=== PATIENT | male | born 1985 | race Hispanic/Latino ===

== ENCOUNTER 2018-10-13 18:25 | Inpatient (IN) | payer MEDICAID ==
[2018-10-13 19:30] LABS: HEMOGLOBIN 15.7 g/dL (12.0-18.0); MEAN CELL VOLUME 89.3 fL (80.0-94.0); MEAN CORPUSCULAR HEMOGLOBIN 29.8 pg (27.0-31.0); MEAN CORPUSCULAR HGB CONC 33.3 g/dL (33.0-37.0); MEAN PLATELET VOLUME 8.9 fL (7.2-11.7); RBC 5.28 Mil/uL (4.40-5.90)
--- NOTE | 2018-10-13 19:37 | C.PDOC ---
History Of Present Illness 32 y/o male with a PMHx of anxiety and depression presents to the ED requesting detox from heroin. Last use was last night. Patient reports he began using heroin (sniffing, no IVDA) 2 months ago and has been trying to self detox at [facility] without success. States he has been on Lexapro, Trazodone, and Xanax but ran out of his meds a few weeks ago, causing him to feel more depressed and rely more on the heroin use. Patient notes he usually develops nausea, diarrhea, and unbearable abdominal pain when detoxing. Currently he complains of chills but no pain or tremors at present. He denies any suicidal or homicidal ideation. No other medical complaints. Time Seen by Provider: 10/13/18 19:04 Chief Complaint (Nursing): Substance Abuse History Per: Patient History/Exam Limitations: no limitations Onset/Duration Of Symptoms: Days Current Symptoms Are (Timing): Still Present Suicide/Self Injury Attempted (Context): None Modifying Factor(s): Narcotics Associated Symptoms: Anxiety, Depression. denies: Suicidal Plan Involuntary Hold By: None Past Medical History Reviewed: Historical Data, Nursing Documentation, Vital Signs Vital Signs: Last Vital Signs Temp 97.8 F 10/13/18 18:27 Pulse 84 10/13/18 18:27 Resp 20 10/13/18 18:27 BP 115/81 10/13/18 18:27 Pulse Ox 99 10/13/18 18:27 - Medical History PMH: Anxiety, Asthma, Depression Denies: Diabetes, Hepatitis, HIV, HTN, Seizures, Sexually Transmitted Disease Surgical History: No Surg Hx Family History: States: Unknown Family Hx - Social History Hx Tobacco Use: No Hx Alcohol Use: No Hx Substance Use: Yes (Heroin, Marijuana) - Immunization History Hx Tetanus Toxoid Vaccination: Yes Hx Influenza Vaccination: No Hx Pneumococcal Vaccination: No Review Of Systems Except As Marked, All Systems Reviewed And Found Negative. Constitutional: Positive for: Chills. Negative for: Sweats Cardiovascular: Negative for: Chest Pain, Palpitations Respiratory: Negative for: Shortness of Breath Gastrointestinal: Negative for: Nausea, Vomiting, Abdominal Pain, Diarrhea Musculoskeletal: Negative for: Other (tremors) Neurological: Negative for: Weakness, Numbness Physical Exam - Physical Exam Appears: Well, Non-toxic, No Acute Distress Skin: Warm, Dry Head: Atraumatic, Normacephalic Eye(s): bilateral: Normal Inspection, PERRL, EOMI Neck: Normal ROM Chest: Symmetrical Cardiovascular: Rhythm Regular, No Murmur Respiratory: Normal Breath Sounds, No Accessory Muscle Use Gastrointestinal/Abdominal: Soft, No Tenderness, No Distention Extremity: Bilateral: Atraumatic, No Pedal Edema, Normal ROM Pulses: Left Dorsalis Pedis: Normal, Right Dorsalis Pedis: Normal Neurological/Psych: Oriented x3, Normal Speech, Other (Calm, cooperative) ED Course And Treatment - Laboratory Results Result Diagrams: 10/13/18 19:26 10/13/18 19:26 O2 Sat by Pulse Oximetry: 99 (RA) Pulse Ox Interpretation: Normal Medical Decision Making Medical Decision Making: Impression: Detox, heroin Plan: Labs ordered for medical clearance. forest nursery worker to speak to patient and evaluate for detox. 19:50 Labs reviewed, Utox (+) for opiates, cannabinoids, and cocaine. Patient is medically cleared for detox admission. 20:55 Discussed with cinder pit worker, patient accepted for detox under Dr. Rudolph's service. Disposition Counseled Patient/Family Regarding: Studies Performed, Diagnosis - Disposition Disposition: HOSPITALIZED Disposition Time: 20:56 Condition: STABLE - Clinical Impression Clinical Impression: Polysubstance abuse, Hyperglycemia - Scribe Statement The provider has reviewed the documentation as recorded by the Kristyn Wallace Provider Attestation: All medical record entries made by the Vivianibmarilin were at my direction and personally dictated by me. I have reviewed the chart and agree that the record accurately reflects my personal performance of the history, physical exam, medical decision making, and the department course for this patient. I have also personally directed, reviewed, and agree with the discharge instructions and disposition.
[2018-10-13 19:47] LABS: ALB/GLOB RATIO 1.5 (1.0-2.1); ALBUMIN 4.4 g/dL (3.5-5.0); ALT/SGPT 26 U/L (21-72); AST/SGOT 21 U/L (17-59); BARBITURATES, UR NEGATIVE (NEGATIVE); BENZODIAZEPINES, UR NEGATIVE (NEGATIVE); BLOOD UREA NITROGEN 14 mg/dL (9-20); GFR NON-AFRICAN AMERICAN > 60; OPIATES, UR POSITIVE (NEGATIVE); PHENCYCLIDINE, UR NEGATIVE (NEGATIVE)
--- NOTE | 2018-10-13 21:25 | PCM.BM ---
<Norma Fish - Last Filed: 10/13/18 21:23> Treatment Plan Problems - Problems identified on initial assessmt Denial Date Initiated: 10/13/18 Time Initiated: 21:23 Assessment reference: NA Status: Active Defensive Coping Date Initiated: 10/13/18 Time Initiated: 21:23 Assessment reference: NA Status: Active Chronic low Self esteem Date Initiated: 10/13/18 Time Initiated: 21:24 Assessment reference: NA Status: Active Treatment assets and liabiliti Patient Assests: ADL independent, negotiates basic needs, cognitively intact Patient Liabilities: substance abuse (Opiates, cocaine,THC) - Milieu Protocol Maintain good personal hygiene: daily Encourage regular showers, daily Remind patient to perform daily oral care, daily Assist patient to perform ADL's Conduct patient checks and document Observation sheet: Q15 minutes Maintain personal safety: every shift Educate patient to report safety concerns to staff, every shift Monitor environment for contraband/sharps Medication safety: Monitor for expected outcome, potential side effects: every shift, Assess barriers to learning: every shift, Assess readiness for medication education: every shift <Reyes Zapata - Last Filed: 10/15/18 14:00> - Diagnosis (1) Opioid use disorder, severe, dependence Status: Acute Interventions: 10/14/18 14:00 * Assess 7x/week regarding severity of withdrawal * Educate regarding risks, benefits, side effects and alternatives of medications * Use Motivational Interviewing for abstinence * Use CBT for relapse prevention * Medication management for withdrawal symptoms * Encourage medication assisted treatment *
[2018-10-13] MEDS ORDERED: Buprenorphine Hydrochloride 2 mg SL ONE ×2 (21:50→22:51)
[2018-10-13] MEDS ORDERED: Aluminum Hydroxide/Magnesium Hydroxide Susp (30 mL) PO PRN (21:50)
--- NOTE | 2018-10-14 09:51 | PCM.PSYCH ---
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 He is here for opioid detox, using 15-20 bags intranasally as well as painkil lers (various amounts0. He had started using 5 years ago but heroin started 3 years ago. No proper treatment before He also uses cocaine, MJ and Xanax (2-3 times a week 2 mg/d) He smokes 1 ppd Psych hx: He was diagnosed with severe depression (still has) and anxiety disorder Medical hx: Denied Family psych hx: Father and GF had alcoholism Current Medications: Active Medications Generic Name Dose Route Start Last Admin Trade Name Freq PRN Reason Stop Dose Admin Al Hydrox/Mg Hydrox/Simethicone 30 ml 10/13/18 21:50 Maalox 30 Ml PO TID PRN Indigestion / Heartburn Buprenorphine HCl 8 mg 10/14/18 10:00 Subutex SL 10/18/18 09:59 .TAPER KATARINA Taper Clonidine HCl 0.1 mg 10/13/18 21:50 Catapres PO Q4 PRN COWS Score More or Equal to 5 Escitalopram Oxalate 20 mg 10/14/18 10:00 Lexapro PO DAILY KATARINA Hydroxyzine HCl 25 mg 10/13/18 21:32 10/14/18 02:41 Atarax PO 25 mg Q6 PRN Administration Anxiety Ibuprofen 600 mg 10/13/18 21:42 Motrin Tab PO Q8 PRN Pain, moderate (4-7) Loperamide HCl 2 mg 10/13/18 21:50 Imodium PO Q8 PRN Diarrhea Ondansetron HCl 4 mg 10/13/18 21:50 Zofran Tab PO Q8 PRN Nausea/Vomiting Pseudoephedrine HCl 60 mg 10/13/18 21:50 Sudafed Tab PO QID PRN Nasal/Sinus Congestion Trazodone HCl 50 mg 10/13/18 22:00 10/13/18 22:42 Desyrel PO 50 mg HS KATARINA Administration Past Psychiatric History - Past Psychiatric History Previous Treatment History: Intensive Outpatient Pertinent Medical Hx (Current Medical&Sleep Prob, Allergies): Allergies Allergy/AdvReac Type Severity Reaction Status Date / Time guaifenesin [From Robitussin] Allergy Verified 10/13/18 18:29 ALPRAZolam [Xanax] 1 mg PO PRN PRN 10/13/18 Escitalopram [Lexapro] 20 mg PO DAILY 10/13/18 Trazodone HCl 50 mg PO DAILY 10/13/18 Review of Systems - Psychiatric Psychiatric: Abnormal Sleep Pattern, Anhedonia, Anxiety, Depression, Difficulty Concentrating, Irritability. absent: Hallucinations, Homicidal Ideation, Suicidal Ideation Mental Status Examination - Personal Presentation Personal Presentation: Looks stated age - Affect Affect: Constricted - Motor Activity Motor Activity: Calm - Reliability in Providing Information Reliability in Providing Information: Good - Speech Speech: Organized - Mood Mood: Depressed - Formal Thought Process Formal Thought Process: No Impairment - Cognitive Functions Orientation: Person, Place, Situation, Time Sensorium: Alert Attention/Concentration: Easily distracted Judgement: Intact, as evidence by: Insight regarding need for hospitalization Memory: Recent intact, as evidence by: Ability to recall events of the day, Remote intact, as evidenced by: Abilit to recall sig. life events - Risk Risk: Withdrawal, Diminished functioning - Strength & Assets Inventory Strength & Assets Inventory: Cooperative - Limitations Limitations: Living alone, Other DSM 5 DX - DSM 5 DSM 5 Diagnosis: Opioid withdrawal Opioid use d/o - severe Cocaine use d/o - severe Cannabis use d/o - severe Sedative, hypnotic use d/o - severe Tobacco use d/o - severe Major depressive d/o - recurrent, severe, without psychosis DIOMEDES - Recommended/Plan of Treatment Treatment Recommendations and Plan of Treatment: Taper with suboxone Lexapro for depression Gabapentin for augmentation As needed medications All risks, benefits and alternatives of the meds discussed, and the pt agreed and understood. Attend groups and activities Supportive therapy and psychoeducation [place] for abstinence CBT for relapse prevention Encourage MAT Refer to rehab or IOP, and self-help groups Teach healthy lifestyle methods, i.e. diet, exercise, meditation Smoking cessation with [place] Nicotine patch if needed 34 min Projected ELOS: 4-5 daysgood w treatment - Smoking Cessation Smoking Cessation Initiated: Yes
[2018-10-14] MEDS: Buprenorphine Hydrochloride 2 mg SL SCH (10:41)
[2018-10-15] MEDS: Buprenorphine Hydrochloride 2 mg SL SCH (09:03)
--- NOTE | 2018-10-15 14:04 | PCM.PYCHPN ---
Psychiatric Progress Note - Psychiatric Progress Note Patient seen today, length of contact: 18 min Patient Chief Complaint: "I don't feel that good, just down" Problems Identified/Issues Discussed: The pt is seen, chart reviewed, case discussed with staff. Pt complains of lack of sleep, stating that he has not been able to fall asleep, even with the medication and that once he falls asleep he awakens multiple times throughout the night. Pt states his mood has improved but still feels a bit down. The pt is compliant with medications and reports no side-effects. Symptoms are improving but needs more time to stabilize. Pt attends groups and activities. Support given, psycho-education provided. After care discussed. Medication Change: Yes (detox changes daily) Medical Record Reviewed: Yes Mental Status Examination - Cognitive Function Orientation: Person, Place, Situation, Time Memory: Intact Attention: WNL Concentration: WNL Association: WNL Fund of Knowledge: WNL - Mood Mood: Depressed - Affect Affect: Flat - Speech Speech: Appropriate - Formal Thought Process Formal Thought Process: No Impairment - Suicidal Ideation Suicidal Ideation: No - Homicidal Ideation Homicidal Ideation: No Goal/Treatment Plan - Goal/Treatment Plan Need for Continued Stay: Discharge may exacerbated symptoms, Severe functional impairment Progress Toward Problem(s) and Goals/Treatment Plan: Taper with suboxone Lexapro for depression Gabapentin for augmentation As needed medications Maalox, Clonidine, Atarax, Motrin, Imodium, Zofran, and Trazodone All risks, benefits and alternatives of the meds discussed, and the pt agreed and understood. Attend groups and activities Supportive therapy and psychoed [place] for abstinence CBT for relapse prevention Encourage MAT Refer to rehab or IOP, and self-help groups Teach healthy lifestyle methods, i.e. diet, exercise, meditation Smoking cessation with PR Nicotine patch if needed Estimated Date of D/C: 10/17/18
[2018-10-16] MEDS: Buprenorphine Hydrochloride 2 mg SL SCH (09:24)
--- NOTE | 2018-10-16 13:45 | PCM.PYCHPN ---
Psychiatric Progress Note - Psychiatric Progress Note Patient seen today, length of contact: 17 min Patient Chief Complaint: "I can't sleep well" Problems Identified/Issues Discussed: The pt is seen, chart reviewed, case is discussed with staff. Support and psychoeducation given, CBT and [place] used briefly The pt is improving slowly but needs more time due to severity of symptoms and relapse risk. No SEs from medications, risks discussed. After care discussed Medication Change: Yes (detox changes daily) Medical Record Reviewed: Yes Mental Status Examination - Cognitive Function Orientation: Person, Place, Situation, Time Memory: Intact Attention: WNL Concentration: Poor Association: WNL Fund of Knowledge: WNL - Mood Mood: Depressed - Affect Affect: Constricted - Speech Speech: Appropriate - Formal Thought Process Formal Thought Process: No Impairment - Suicidal Ideation Suicidal Ideation: No - Homicidal Ideation Homicidal Ideation: No Goal/Treatment Plan - Goal/Treatment Plan Need for Continued Stay: Discharge may exacerbated symptoms, Severe functional impairment Progress Toward Problem(s) and Goals/Treatment Plan: Taper with suboxone Lexapro for depression Gabapentin for augmentation As needed medications Maalox, Clonidine, Atarax, Motrin, Imodium, Zofran, and Trazodone All risks, benefits and alternatives of the meds discussed, and the pt agreed and understood. Attend groups and activities Supportive therapy and psychoed [place] for abstinence CBT for relapse prevention Encourage MAT Refer to rehab or IOP, and self-help groups Teach healthy lifestyle methods, i.e. diet, exercise, meditation Smoking cessation with [place] Nicotine patch if needed Estimated Date of D/C: 10/17/18
[2018-10-17] MEDS: Buprenorphine Hydrochloride 2 mg SL SCH (09:41)
--- NOTE | 2018-10-17 11:42 | PCM.PYCHPN ---
Psychiatric Progress Note - Psychiatric Progress Note Patient seen today, length of contact: 17 min Patient Chief Complaint: I am feeling little better Problems Identified/Issues Discussed: Patient was seen and evaluated, chart reviewed and discussed with staff. Patient reports some improvement in the withdrawal symptoms, however he still reports anxiety, headaches and sweating. He denies any feelings of hopelessness or helplessness. He denies any suicidal ideation or any homicidal ideation. He denies any auditory hallucinations or any paranoia. He is taking medication but denies any side effects. Supportive therapy was given Medication Change: Yes (detox changes daily) Medical Record Reviewed: Yes Mental Status Examination - Cognitive Function Orientation: Person, Place, Situation, Time Memory: Intact Attention: WNL Concentration: Poor Association: WNL Fund of Knowledge: WNL - Mood Mood: Depressed - Affect Affect: Constricted - Speech Speech: Appropriate - Formal Thought Process Formal Thought Process: No Impairment - Suicidal Ideation Suicidal Ideation: No - Homicidal Ideation Homicidal Ideation: No Goal/Treatment Plan - Goal/Treatment Plan Need for Continued Stay: Discharge may exacerbated symptoms, Severe functional impairment Progress Toward Problem(s) and Goals/Treatment Plan: Opioid withdrawal Opioid use d/o - severe Cocaine use d/o - severe Cannabis use d/o - severe Sedative, hypnotic use d/o - severe Tobacco use d/o - severe Major depressive d/o - recurrent, severe, without psychosis DIOMEDES Taper with suboxone Lexapro for depression Gabapentin for augmentation As needed medications All risks, benefits and alternatives of the meds discussed, and the pt agreed and understood. Attend groups and activities Supportive therapy and psychoeducation [place] for abstinence CBT for relapse prevention Encourage MAT Refer to rehab or IOP, and self-help groups Teach healthy lifestyle methods, i.e. diet, exercise, meditation Smoking cessation with [place] Nicotine patch if needed Estimated Date of D/C: 10/17/18
[2018-10-17] MEDS ORDERED: Buprenorphine Hydrochloride 2 mg SL ONE (19:19)
[2018-10-18 04:16] VITALS: RESP 18
[2018-10-18] MEDS ORDERED: Buprenorphine Hydrochloride 2 mg SL ONE (09:52)
[2018-10-18 11:06] VITALS: BP 98/64; PULSE 75; TEMP 97.6; O2SAT 98
--- NOTE | 2018-10-18 16:26 | PCM.PYCHDC ---
Mental Status Examination - Mental Status Examination Orientation: Person, Place, Situation, Time Memory: Intact Mood: Neutral Affect: Other (Appropriate) Speech: Appropriate Attention: WNL Concentration: WNL Association: WNL Fund of Knowledge: WNL Formal Thought Process: No Impairment Description of patient's judgement and insight: Fair Psychotic Thoughts and Behaviors: None Suicidal Ideation: No Current Homicidal Ideation?: No Discharge Summary - Discharge Note Reason for Hospitalization: Opioid withdrawal Opioid use d/o - severe Cocaine use d/o - severe Cannabis use d/o - severe Sedative, hypnotic use d/o - severe Tobacco use d/o - severe Major depressive d/o - recurrent, severe, without psychosis DIOMEDES Laboratory Data: Reviewed Consultations:: List each consultation separately and include: 1. Reason for request. 2. Findings. 3. Follow-up Summary of Hospital Course include:: 1. Description of specific treatment plan utilized for patients during their course of treatmen. 2. Summarize the time- course for resolution of acute symptoms and/or regressed behaviors. 3. Describe issues identified and worked on during hospitalization. 4. Describe medication utilized. 5. Describe medical problems identified and treated. 6. 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 He is here for opioid detox, using 15-20 bags intranasally as well as painkillers (various amounts0. He had started using 5 years ago but heroin started 3 years ago. No proper treatment before He also uses cocaine, MJ and Xanax (2-3 times a week 2 mg/d) He smokes 1 ppd Psych hx: He was diagnosed with severe depression (still has) and anxiety disorder Medical hx: Denied Family psych hx: Father and GF had alcoholism. During his stay in the hospital patient was treated with Subutex for opiate withdrawal symptoms. Patient was also started on other PRN medications. Patient was attending groups and other activities on the unit. With above treatment patient started feeling better. Today patient was stable and ready for discharge from the hospital. At the time of evaluation and discharge, patient was awake, alert and oriented x3, calm and cooperative, denied any delusions, auditory or visual hallucinations, suicidal ideations or homicidal ideations. Patient was disch arged in a stable condition. - Final Diagnosis (DSM 5) Condition upon Discharge: STABLE Disposition: HOME/ ROUTINE Follow-up Treatment Plan: Patient will go to [facility] for follow-up care after discharge from the hospital. Prescriptions/Medication Reconciliation: Escitalopram [Lexapro] 20 mg PO DAILY #30 tab Gabapentin [Neurontin] 300 mg PO TID #90 cap hydrOXYzine HCl [Atarax] 50 mg PO DAILY PRN #30 tab PRN Reason: Anxiety QUEtiapine [Seroquel] 100 mg PO HS PRN #30 tab PRN Reason: Insomnia traZODone [Desyrel] 100 mg PO HS #30 tab - Smoking Cessation Smoking Cessation Medication prescribed: Yes - Antipsychotic Medications Pt discharged on 2 or more routine antipsychotic medications: No
== END 2018-10-18 11:12 | disposition home or self-care (01) | DRG 772 ==
LOC: C.ER 18:25 → C.7D 20:56
PROVIDERS: ADMIT Psychiatry & Neurology Psychiatry; ATTEND Psychiatry & Neurology Psychiatry
PROC: HZ2ZZZZ Detoxification Services for Substance Abuse Treatment (ICD-10-PCS; principal; 2018-10-13)
PROC: GZ3ZZZZ Medication Management (ICD-10-PCS; 2018-10-13)
PROC: HZ46ZZZ Group Counseling for Substance Abuse Treatment, Psychoeducation (ICD-10-PCS; 2018-10-13)
PROC: HZ59ZZZ Individual Psychotherapy for Substance Abuse Treatment, Supportive (ICD-10-PCS; 2018-10-13)
DX: F11.23 Opioid dependence with withdrawal (principal); F33.2 Major depressive disorder, recurrent severe without psychotic features; F14.10 Cocaine abuse, uncomplicated; F15.10 Other stimulant abuse, uncomplicated; F12.90 Cannabis use, unspecified, uncomplicated; F41.1 Generalized anxiety disorder; F17.210 Nicotine dependence, cigarettes, uncomplicated; J45.909 Unspecified asthma, uncomplicated